=== PATIENT | male | born 1955 | race Caucasian/White ===

== ENCOUNTER 2024-04-17 10:20 | Outpatient (REF) | payer MEDICARE, SELFPAY ==
--- OUTSIDE RECORDS SUMMARY | 2024-04-17 11:06 | XMS_ITS | Data Portability ---
Author Organization [facility], Home Service Address [address] [place] [address] Assessment No assessment recorded. Plan of Treatment Reminders Order Date Submit Date Provider Last Modified By Organization Details Last Modified Time Details Appointments ANNUAL EXAM 2024 11:30A M DR CALVERT Not available Not available Not available Lab CBC 2018 019 [facility], [address] [place] [address], [id number], 01/02/2019 16:53:14 CMP, serum or plasma 2018 019 [facility], [address] [place] [address], [id number], 01/02/2019 16:53:14 erythrocy te sedimenta tion rate by racheal marx 2018 019 [facility], [address] [place] [address], [id number], 01/01/2019 16:10:43 lipid panel, blood 2018 019 [facility], [address] [place] [address], [id number], 01/10/2019 16:50:34 rapid strep group A, throat 2019 020 [facility], [address], [address], [place], [address], 04/15/2019 15:22:24 culture, bacterial 2019 020 [facility], [address] [place] [address], [id number], 04/15/2019 15:10:34 fungus, culture, unspecifi ed specimen 2019 [facility], [address] [place] [address], [id number], 05/20/2019 09:50:41 lipid panel, blood 2023 [facility], [address] [place] [address], [id number], 09/18/2023 11:53:52 CMP, serum or plasma 2023 [facility], [address] [place] [address], [address], 09/18/2023 11:53:52 Referral None recorded. Procedures None recorded. Surgeries None recorded. Imaging XR, chest 2018 [facility] Not available 01/02/2019 13:06:30 CT, chest, w/ contrast 2018 019 [facility] Not available 01/07/2019 14:09:49 Medication Orders Diflucan 100 mg tablet [address] [facility], [address] [place], [place], [id number], 09/18/2023 10:59:07 chlorhexi dine gluconate 0.12 % mouthwash [address] [facility], [address] [place], [place], [id number], 09/18/2023 11:03:33 rosuvasta tin 10 mg tablet [address] [facility], [address] [place], [place], [id number], 09/18/2023 11:39:44 Patient TargetsNo targets recorded. Patient Instructions Encounter Date Encounter Id Patient Instructions Last Modified By Organization Details Last Modified Time 08/26/2018 elevated blood pressure: care instructions Not available 08/26/2018 10:50:12 ganglions: care instructions Not available 08/26/2018 10:50:12 01/01/2019 [id number] coughing up bloo d: care instructions Not available 01/01/2019 16:01:47 04/15/2019 [id number] candidiasis: car e instructions Not available 04/15/2019 15:03:40 elevated blood pressure: care instructions Not available 04/15/2019 15:03:40 09/18/2023 [id number] lightheadedness or faintness: care instructions Not available 09/18/2023 11:52:25 Reason for Referral None Reported. Results Created Date Observation Date Name Description Value Unit Range Abnormal Flag Note LastModifiedBy Organization Detail LastModifiedTime 04/15/19 20 04/15/2019 rapid strep group A, throa t Strep negati ve Not Available [facility] [address], [place], [address], 04/15/2019 14:49:50 01/03/20 19 01/02/2019 XR, chest No observ ation record ed. [address], [address], 01/10/2019 16:16:21 01/08/20 19 01/07/2019 CT, chest , w/ contr ast No observ ation record ed. [address], [address], 01/10/2019 16:16:20 10/01/19 20 09/26/2019 trans -thor acic echoc ardio gram (TTE) (PROC ) No observ ation record ed. Danny Gorman MD [address] [facility] [address], [place], [address], 09/18/2023 11:28:08 05/27/19 22 05/24/2021 US, jessica rizo carot id arter y No observ ation record ed. [facility] [address] [place], [address], 09/18/2023 11:28:08 08/18/19 22 08/08/2021 imagi ng/di agnos tic resul t No observ ation record ed. [facility] [address] [place], [address], 09/18/2023 11:28:08 06/27/19 23 06/22/2022 nucle ar stres s test No observ ation record ed. [facility] [address] [place], [address], 09/18/2023 11:28:08 06/28/19 23 06/14/2022 milka r monit or No observ ation record ed. [facility] [address] [place], [address], 09/18/2023 11:28:08 07/08/19 23 07/05/2022 trans -thor acic echoc ardio gram (TTE) (PROC ) No observ ation record ed. [facility] [address], [place], [address], 09/18/2023 11:28:07 Result Notes None recorded. Problems Name Problem SNOMED Code Status Onset Date Resolution Date Notes Provider Name and Address Organization Details Recorded Time Hypertensi ve disorder 41938233 Active 2017 Not Available [facility] 16:44:17 Hyperchole sterolemia 55624227 Active 2017 Not Available [facility] 16:44:17 Left ventricula r hypertroph y 75254299 Active 2018 Not Available [facility] 3 16:44:17 Nodule of lung 275274014 Active 2018 Not Available [facility] 3 16:44:17 Cough 05200195 Active 2023 Michael Calvert, DO [address] [place], [address], [place] [facility] 4 14:51:03 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 Procedures Surgical History None recorded. Imaging Results Imaging Date Name Status LastModified by Organization Details LastModified Time 01/02/2019 XR, chest completed [address], [address], 01/10/2019 16:16:21 01/07/2019 CT, chest, w/ contrast completed [address], [address], 01/10/2019 16:16:20 09/26/2019 trans-thoracic echocardiogram (TTE) (PROC) [place] [address] Danny Gorman MD [address], [address], 09/18/2023 11:28:08 05/24/2021 US, duplex, carotid artery completed [address] [facility] [address] [place], [address], 09/18/2023 11:28:08 08/08/2021 imaging/diagnostic result completed [address] Cardiology [address] [place], [address], 09/18/2023 11:28:08 06/22/2022 nuclear stress test completed [address] [facility] [address] [place], [address], 09/18/2023 11:28:08 06/14/2022 holter monitor [facility] [address], [place], [address], 09/18/2023 11:28:08 07/05/2022 trans-thoracic echocardiogram (TTE) (PROC) [facility] [address], [place], [address], 09/18/2023 11:28:07 Procedure Notes None recorded. Medical Equipment None Reported. Allergies No known drug allergies Medications Name Sig Start Date Stop Date Status Note LastModified by Organization Details LastModified Time carvedilol 25 mg tablet TAKE 1 TABLET BY MOUTH TWICE DAILY WITH MEALS active Not Available Not Available No t Available doxycycline hyclate 100 mg capsule TAKE 1 CAPSULE BY MOUTH TWICE A DAY WITH FOOD FOR 2 TO 4 WEEKS. DO NOT TAKE RIGHT BEFORE BEDTIME 09/17 completed Not Available Not Available Not Available azithromyci n 250 mg tablet TAKE 2 TABLETS (500 MG) BY ORAL ROUTE ONCE DAILY FOR 1 DAY THEN 1 TABLET (250 MG) BY ORAL ROUTE ONCE DAILY FOR 4 DAYS 09/17 completed Not Available Not Available Not Available Diflucan 100 mg tablet Take 1 tablet every day by oral route for 7 days. 09/17 completed Not Available Not Available Not Available MetroCream 0.75 % topical APPLY A THIN LAYER TO THE AFFECTED AREA(S) BY TOPICAL ROUTE 2 TIMES PER DAY IN THE MORNING AND EVENING 01/01 completed Not Available Not Available Not Available simvastatin 20 mg tablet Take 1 tablet every day by oral route. 06/07 completed Not Available Not Available Not Available lisinopril 10 mg tablet TAKE 1 TABLET BY MOUTH DAILY active Not Available Not Available No t Available lisinopril 40 mg tablet Take 1 tablet every day by oral route. 09/17 completed Not Available Not Available Not Available rosuvastati n 5 mg tablet TAKE 1 TABLET BY MOUTH DAILY 09/17 completed Not Available Not Available Not Available rosuvastati n 10 mg tablet TAKE 1 TABLET BY MOUTH EVERY DAY active Not Available Not Available No t Available chlorhexidi ne gluconate 0.12 % mouthwash Place 45 mL every day by mucous membrane route for 30 days. 09/17 completed Not Available Not Available Not Available carvedilol 05/06 completed Not Available Not Available Not Available simvastatin 05/06 completed Not Available Not Available Not Available lisinopril 05/06 completed Not Available Not Available Not Available Vitals Date Recorded Body height Body mass index (BMI) Body weight Heart rate Oxygen saturation Oxygen saturation in Arterial blood by Pulse oximetry Systolic blood pressure Diastolic blood pressure Provider Name and Address Organization Details Last Updated DateTime 9 177.17 cm 33.3 kg/m2 358980. 32 g 75 /min 97 % 97 % 132 mm[Hg] 80 mm[Hg] Michael Calvert, DO [address] [place], [address] [place] [address] Internal Medicine 9 16:08:40 Date Recorded Body height Heart rate Oxygen saturation Oxygen saturation in Arterial blood by Pulse oximetry Body temperature Systolic blood pressure Diastolic blood pressure Provider Name and Address Organization Details Last Updated DateTime 0 177.17 cm 77 /min 98 % 98 % 98.5 [degF] 150 mm[Hg] 90 mm[Hg] Dianna Nj [facility] 0 14:50:45 Date Recorded Body height Body mass index (BMI) Body weight Heart rate Oxygen saturation Oxygen saturation in Arterial blood by Pulse oximetry Systolic blood pressure Diastolic blood pressure Provider Name and Address Organization Details Last Updated DateTime 4 177.17 cm 32.8 kg/m2 614118. 11 g 58 /min 98 % 98 % 112 mm[Hg] 72 mm[Hg] Phylicia Kolb [facility] 4 11:08:25 Date Recorded Body height Body mass index (BMI) Body weight Heart rate Oxygen saturation Oxygen saturation in Arterial blood by Pulse oximetry Systolic blood pressure Diastolic blood pressure Provider Name and Address Organization Details Last Updated DateTime 9 177.17 cm 34.5 kg/m2 663213. 86 g 62 /min 97 % 97 % 140 mm[Hg] 90 mm[Hg] Dianna Nj [facility] 9 10:23:07 Date Recorded Body height Body mass index (BMI) Body weight Heart rate Oxygen saturation Oxygen saturation in Arterial blood by Pulse oximetry Systolic blood pressure Diastolic blood pressure Provider Name and Address Organization Details Last Updated DateTime 9 177.17 cm 34.5 kg/m2 739537. 86 g 74 /min 98 % 98 % 138 mm[Hg] 80 mm[Hg] Cristy Kingsley [facility] 9 15:24:39 Social History Question Answer Notes LastModified by Organizat ion Details LastModified Time Tobacco Smoking Status Former Smoker Not Available [facility] 02/10/2020 03:36:24 What Was The Date Of Your Most Recent Tobacco Screening? 09/18/2023 [email or web address] Information not available 09/18/2023 Sex: Unknown Functional Status None recorded. Mental Status None recorded. Family History Nothing Reported. Medical History No medical history recorded. Past Encounters Encounter ID Performer Location Encounter Start Date Encounter Closed Date Diagnosis/Indication Diagnosis SNOMED-CT Code Diagnosis ICD10 Code Diagnosis Note [id number] July AMPARO Alva [facility] [address] [place] [address] 02/19/2018 13:58:09 02/19/2018 15:27:16 Hypertensive disorder 41759531 I10 has cpe scheduled for april, will recheck Hypercholesterolemia 136 81250 E78.00 Pneumonia 625513111 J18. 9 had atypical pna last year with resolution with zpack [id number] [facility] Internal Medicine [address] [place] [address] 05/06/2018 11:52:18 05/06/2018 12:26:23 Adult health examination 554977863 Z00.00 will try holding the simvastati n first, if no improvemen t will consider lisinopril but will discuss with cardiology also will obtain a fasting lab [id number] [facility] Internal Medicine [address] [place] [address] [place] [address] 06/07/2018 10:19:54 06/07/2018 11:20:05 Hypercholesterolemia 33655528 E78.00 will repeat and have this done in october to see how he did off statin Hypertensive disorder 38 472752 I10 cont lisinopril for now and rechk in october Prostate s pecific antigen above reference range 828042076 R97.20 discussed at length and will repeat in 4 mo Left ventr icular hypertrophy 74963993 I51.7 here the last echo is ok and the LV is actually better Dione Artie [facility] [address] [facility] [address] [address] 08/26/2018 10:12:31 08/26/2018 14:06:07 Ganglion cyst 81053997 M67.40 cyst aspirated advised of signs of infection and to call if develop advised that if cyst returns, hand surgeon consult recommende d for cyst removal PROCEDURE: cyst aspiration - cyst was sterilized with povidone and aspirated using an 18 guage needle about 0.5 cc of blood streaked clear fluid was removed consistent with synovial fluid. skin was cleansed and bandaged Hypertensive disorder 38 209045 I10 mildly elevated will monitor Hypercholesterolemia 136 60812 E78.[id number] [facility] Internal Medicine [address] [place] [address] [place] [address] 01/01/2019 15:13:47 01/01/2019 16:13:49 Hemoptysis 47195656 R04.2 new onset and unprovoked except after the exertion will need cxr and ct scan both ordered consider cbc etc [id number] [facility] Internal Medicine [address] [place] [address] [place] [address] 01/10/2019 16:03:43 01/10/2019 16:36:30 Hemoptysis 96551095 R04.2 resolved and without issue ct is normal and cxr is normal he does have a LLL pulm nodule Prostate s pecific antigen above reference range 710107798 R97.20 discussed at length and will see urol next week Hypercholesterolemia 136 45909 E78.00 simvastati n caused brain fog and depression [id number] Dione Alva [facility] [address] [place] [address] 04/15/2019 14:45:16 04/15/2019 15:19:20 Hypertensive disorder 48288415 I10 mildly elevated today Hypercholesterolemia 136 48139 E78.00 Pharyngitis 499698151 J0 2.9 ? fungal wheres mouthgard for teeth grinding, rinses, but no sterilizat ion techniques Candidiasis of mouth 797 01845 B37.0 [id number] Michael Calvert, [facility] Internal [facility] [address] [address] 09/18/2023 10:55:58 09/18/2023 12:00:36 Active or passive immunization 241983963 Z23 utd Adult heal th examination 531514617 Z00.00 has held the simvastati n and feels markedly betterwill now try rosuvastat Depression screening 171 006849 Z13.31 SCREENING NEGATIVE Near syncope 733882349 R 55 given that he has several episodes when bending over and straighten ing [place] can nearly pass out now that he has remained hydrated and taking vitamin C he feels better and hasnt had an episode in 3 months where he would have Health Concerns Section Related Observation LastModified by Organization Detai ls LastModified Time None Recorded Concern Status LastModified by Organization Details LastModified Time None Recorded Advance Directives Directive None Recorded Payers Encounter Date Sequence Insurance Name Policy Number Policy Sarkar Covered Member ID Sarkar Member ID Guarantor Name 08/26/2018 1 [place] [id number] Dwain Harrison [id number] Dwain Harrison 01/01/2019 1 [place] [id number] Dwain Harrison [id number] Dwain Harrison 01/10/2019 1 [place] [id number] Dwain Harrison [id number] Dee Harrison 04/15/2019 1 [place] [id number] Dwain Harrison [id number] Dwain Harrison 09/18/2023 1 [place] [id number] Dwain Harrison [id number] Dwain Harrison Notes Date Note Type Note Provider Name a nd Address Organization Details Recorded Time 9 text/html lump on right 3rd digit - pip jt. no pain several months. would like to see if it can be aspirated. otherwise no complaints 12 system ROS negative except where noted above- denies: chest pain, palpitations, sob, ankle swelling, visual problems, hearing problems, muscle aches or pains, numbness or tingling extremities, abdominal pain, bowel issues, bladder issues, sexual dysfunction, abnormal bleeding, sx of sinus/respiratory infection , headaches, dizziness/lightheaded ness, rashes, or nail changes. AMPARO Parks [address] [place], [address], [facility] 08/26/2018 10:52:34 9 text/html was doing a lot of hiking went up a steep area and was winded was noted to begin coughing and then started bleeding and began with hemoptysis for the next 2 hours went to bed that night and noted a sensation on his right lung whcih would seemingly generate the hemoptysis disappeared over the next day hasnt happened since used to smoke quit in 1985 pack [er day for 15 yrs Michael Calvert DO [address] [place] [address], [address], [facility] 01/01/2019 16:04:12 9 text/html states is here for hemoptysis relates is no longer having and is just having a scant amount has had tests no w just residual dry cough Michael Calvert DO [address] [place], [address], [facility] 01/10/2019 16:32:17 0 text/html sore throat for about 3-4 weeks, feels like its cracked. had tonsils out age 17 doesn't feel sick, hasn't felt sick either feels sore when stretching his neck looked in the back and noticed white lines and a red raw spot on the left side 12 system ROS negative except where noted above- denies: chest pain, palpitations, sob, ankle swelling, visual problems, hearing problems, muscle aches or pains, numbness or tingling extremities, abdominal pain, bowel issues, bladder issues, sexual dysfunction, abnormal bleeding, sx of sinus/respiratory infection , headaches, dizziness/lightheaded ness, rashes, or nail changes. AMPARO Parks [address] [place], [address], [facility] 04/15/2019 15:05:23 4 text/html Annual WellnessReported bypatient.Diet and Nutrition:healthy diet Fracture Risk:no history of fractures; no recent explained fracture; no sudden unexplained fractures; no previous musculoskeletal injuries Physical Activity:exercises on a regular basis; recent increase in physical activity; good physical condition Additional Lifestyle Factors:no tobacco use; no alcohol intake; stopped drinking alcohol Depression Risk:never feels sad, empty, or tearful; no loss of interest in activities; no significant changes in weight; no sleep disturbances or insomnia; no agitation; no loss of energy; no feelings of worthlessness or guilt; no thoughts of suicide; no history of depression; no history of mood disorders Hearing:no loss of hearing Vision:no vision problems here for cpe Michael Calvert DO [address] [place], [address], [facility] 09/18/2023 11:52:59
[2024-04-17 12:19] LABS: Cholesterol 208 mg/dL (<200); HDL Cholesterol 58 mg/dL (>40); LDL Cholesterol Calculated 129 mg/dL (<100); Triglycerides 108 mg/dL (<150)
[2024-04-17 12:46] LABS: Alanine Aminotransferase 43 U/L (0-40); Alkaline Phosphatase 70 U/L (39-117); Anion Gap 11 (12-20); Aspartate Amino Transferase 34 U/L (5-37); Bilirubin Total 0.6 mg/dL (0.0-1.0); Blood Urea Nitrogen 23 mg/dL (9-16); Calcium 9.3 mg/dL (8.4-10.2); Carbon Dioxide 22 mmol/L (22-29); Chloride 111 mmol/L (96-108); Estimated Glomerular Filt Rate > 60; Glucose Random 128 mg/dL (60-115); Potassium 4.2 mmol/L (3.3-5.1); Sodium 140 mmol/L (135-145); Total Protein 6.8 g/dL (6.5-8.0)
== END 2024-04-17 10:21 | disposition home or self-care (01) ==
LOC: HO.LAB 10:20
PROVIDERS: PCP Internal Medicine; Referring Provider Internal Medicine; Visit Provider Nurse Practitioner
DX: Z00.00 Encounter for general adult medical examination without abnormal findings (principal); E78.00 Pure hypercholesterolemia, unspecified
CPT/HCPCS: 36415; 80053; 80061

== ENCOUNTER 2024-10-28 09:44 | Outpatient (REF) | payer MEDICARE, SELFPAY ==
--- OUTSIDE RECORDS SUMMARY | 2024-10-28 10:30 | XMS_ITS | Continuity of Care Document ---
Author Organization [facility], [facility] Address [address] [place] [address] Assessment No assessment recorded. Plan of Treatment Reminders Order Date Submit Date Provider Last Modified By Organization Details Last Modified Time Details Appointments ANNUAL EXAM 2024 09:00A M DR CALVERT Not available Not available Not available ANNUAL EXAM 2025 09:00A M DR CALVERT Not available Not available Not available Lab PSA, total + free, serum or plasma 2024 025 [facility], [address] [place] [address], [id number], 10/28/2024 09:38:58 testoster one, total, serum 2024 025 [facility], [address] [place] [address], [id number], 10/28/2024 09:33:20 vitamin B12, serum 2024 025 [facility], [address] [place] [address], [id number], 10/28/2024 09:33:20 TSH, serum or plasma 2024 025 [facility], [address] [place] [address], [id number], 10/28/2024 09:33:20 CBC w/ auto diff 2024 025 [facility], [address] [place] [address], [id number], 10/28/2024 09:33:20 Referral None recorded. Procedures None recorded. Surgeries None recorded. Imaging None recorded. Medication Orders terbinafi ne HCl 250 mg tablet 2024 025 [id number], [address] [place], [place], [phone], 10/28/2024 09:31:59 Patient TargetsNo targets recorded. Patient Instructions Encounter Date Encounter Id Patient Instructions Last Modified By Organization Details Last Modified Time 10/28/2024 [id number] prostate biopsy: about this test Not available 10/28/2024 09:37:42 Reason for Referral None Reported. Problems Name Problem SNOMED Code Status Onset Date Resolution Date Notes Provider Name and Address Organization Details Recorded Time Hypertensi ve disorder 19723659 Active 2017 Not Available [facility] 3 16:44:17 Hyperchole sterolemia 89796710 Active 2017 Not Available [facility] 3 16:44:17 Left ventricula r hypertroph y 55498982 Active 2018 Not Available [facility] 3 16:44:17 Nodule of lung 967782884 Active 2018 Not Available [facility] 3 16:44:17 Cough 48685004 Active 2023 Michael Calvert DO [address] [place] [address], [phone], [facility] 4 14:51:03 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 Active 2023 Michael Calvert DO [address] [place] [address], [phone], [facility] 4 11:30:22 Near syncope 210830077 Active 2023 Michael Calvert DO [address] [place] [address], [phone], [facility] 4 11:47:49 Onychomyco sis of toenails 378384491 Active 2024 Michael Calvert DO [address] [place] [address] [place], [phone], [facility] 5 09:15:01 Fatigue 85267556 Active 2024 Michael Calvert, [address] [place], [address], [facility] 5 09:16:47 Prostate specific antigen above reference range 187014607 Active 2024 Michael Calvert, DO [address] [place], [address], [facility] 5 09:37:31 Problem Notes None recorded. Medical Equipment None Reported. Allergies No known drug allergies Medications Name Sig Start Date Stop Date Status Note LastModified by Organization Details LastModified Time carvedilol 25 mg tablet TAKE 1 TABLET BY MOUTH TWICE DAILY WITH MEALS active Not Available Not Available No t Available doxycycline hyclate 100 mg capsule TAKE 1 CAPSULE BY MOUTH TWICE DAILY WITH FOOD FOR 2 TO 4 WEEKS. DO NOT TAKE RIGHT BEFORE BEDTIME. 10/28 completed Not Available Not Available Not Available azithromyci n 250 mg tablet TAKE 2 TABLETS (500 MG) BY ORAL ROUTE ONCE DAILY FOR 1 DAY THEN 1 TABLET (250 MG) BY ORAL ROUTE ONCE DAILY FOR 4 DAYS 09/17 completed Not Available Not Available Not Available terbinafine HCl 250 mg tablet Take 1 tablet every day by oral route for 30 days. 2024 active Not Available Not Available Not Avai lable Diflucan 100 mg tablet Take 1 tablet every day by oral route for 7 days. 09/17 completed Not Available Not Available Not Available simvastatin 20 mg tablet Take 1 tablet every day by oral route. 06/07 completed Not Available Not Available Not Available lisinopril 10 mg tablet TAKE 1 TABLET BY MOUTH DAILY active Not Available Not Available No t Available metronidazo le 0.75 % topical cream APPLY TOPICALLY EVERY DAY - TWICE DAILY TO AFFECTED AREAS FOR ROSACEA active Not Available Not Available No t [...] Available Not Available Vitals Date Recorded Body weight Oxygen saturation Oxygen saturation in Arterial blood by Pulse oximetry Heart rate Systolic And Diastolic Provider Name and Address Organization Details Last Updated DateTime 5 566691. 53 g 96 % 96 % 68 /min 128/74 mm[Hg] Yoli Martinez [facility] 5 09:03:28 Social History Question Answer Notes LastModified by Organizat ion Details LastModified Time Tobacco Smoking Status Former Smoker Not Available [facility] 02/10/2020 03:36:24 What Was The Date Of Your Most Recent Tobacco Screening? 10/28/2024 [email or web address] Information not available 10/28/2024 Sex: Unknown Functional Status None recorded. Mental Status None recorded. Family History Nothing Reported. Medical History No medical history recorded. Past Encounters Encounter ID Performer Location Encounter Start Date Encounter Closed Date Diagnosis/Indication Diagnosis SNOMED-CT Code Diagnosis ICD10 Code Diagnosis Note [id number] Michael Calvert DO [facility] [address] [facility] [address] 10/28/2024 08:54:26 10/28/2024 10:02:55 Active or passive immunization 882966377 Z23 utd Depression screening 171 529808 Z13.31 SCREENING NEGATIVE Hypercholesterolemia 136 12443 E78.00 simvastati n caused brain fog and depression Hypertensive disorder 38 547667 I10 cont lisinopril for now and rechk in october Left ventr icular hypertrophy 35922538 I51.7 here the last echo is ok and the LV is actually betterseei ng cardiology in 2 days reviewed lab in detail Onychomyco sis of toenails 310600696 B35.1 will start terbinafin e Fatigue 96452083 F32.A R53.83 Well adult 775952983 Z00 .00 has held the simvastati n and feels markedly betterwill now try rosuvastat Prostate s pecific antigen above reference range 208606430 R97.20 discussed at length and will see urol next week Health Concerns Section Related Observation LastModified by Organization Detai ls LastModified Time None Recorded Concern Status LastModified by Organization Details LastModified Time None Recorded Payers Encounter Date Sequence Insurance Name Policy Number Policy Sarkar Covered Member ID Sarkar Member ID Guarantor Name 10/28/2024 1 [facility] [id number] 1 Dwain Harrison [id number] Dwain Harrison 10/28/2024 2 MEDICARE [employer]: [employer] Dwain Harrison [id number] Dwain Harrison Notes Date Note Type Note Provider Name and Address Organization Details Recorded Time 10/29/19 25 text/htm l Annual WellnessReported bypatient.Diet and Nutrition:healthy diet Fracture [...] disorders Hearing:no loss of hearing Vision:no vision problemsCare Management - HyperlipidemiaReported bypatient.Control:usually well controlled; improving; at goal Complications:no coronary artery disease; no heart attack; no cardiovascular disease; no pancreatitis; no strokeCare Management - HypertensionReported bypatient.Self Care:not under emotional stress Severity:symptoms are improving; does not interfere with daily activities Associated Symptoms:no dizziness; no lightheadedness; no chest pain; no shortness of breath; no palpitations; no edema; no calf muscle cramps; no blurred vision; no confusion; no headaches; no fatigue here for rechk and is doing ok overallno major issuesand no problems overall Michael Calvert, DO [address] [place], [address], [facility] 10/28/2024 09:38:43
--- OUTSIDE RECORDS SUMMARY | 2024-10-28 10:30 | XMS_ITS | Encounter Summary ---
Author Organization [facility] Address [address] [facility] [address] [place] [address] Phone Care Team Providers Care Director Of Sales Support Name Role Phone Michael Livingston Primary Care Provider [phone] Michael Livingston DO Unavailable Encounter Details Date Type Department Care Team (Late st Contact Info) Description 07/20/2023 Procedure Pass [facility] Admitting Dept Virtual Department [address] [place] [address] Social History Tobacco Use Types Packs/Day Years Used Date Smoking Tobacco: Former Cigarettes Alcohol Use Standard Drinks/Week Comments Not Currently 0 (1 standard drink = 0.6 oz pur e alcohol) Education Answer Date Recorded Are you interested in more education? Not on patrick e 08/13/2022 Are you concerned about learning? Not on file 08/13/2022 No 08/13/2022 No 08/13/2022 Digital Access Answer Date Recorded No 09/03/2022 No 09/03/2022 Reliable internet access at home? Not on file 09/03/2022 Device with a working camera? Not on file Intimate Partner Violence Answer Date R ecorded Are you denied basic needs s uch as food, clothing, or medical care? No 07/20/2023 In the past 12 months have y ou been in a relationship with a person who hurts, threatens, or tries to control you? No 07/20/2023 Are you denied basic needs s uch as food, clothing, or medical care? No 07/20/2023 In the past 12 months have y ou been in a relationship with a person who hurts, threatens, or tries to control you? No 07/20/2023 Sex and Gender Information Value Date Recorded Sex Assigned at Not on file Legal Sex Male 6:17 PM EST Gender Identity Not on file Sexual Orientation Not on file documented as of this encounter Plan of Treatment Not on file documented as of this encounter Visit Diagnoses Not on filedocumented in this encounter Care Teams Director Of Sales Support Relationship Specialty Start Date End Date Michael Livingston DO [email or web address] PCP - General Internal Medicine 01/02/19 Michael Livingston DO [address] [place] [address] [email or web address] Insurance Assigned Provider 12/15/23 06/14/24 documented as of this encounter Additional Source Comments The information contained in this document represents components of the legal health record. It is not the complete legal health record.[facility]
--- OUTSIDE RECORDS SUMMARY | 2024-10-28 10:30 | XMS_ITS | Clinical Summary ---
Author Organization [address] [place] [address] [place] [phone] Phone Care Team Providers Care Chief Security Officer Name Role Phone Michael Livingston DO Primary Care Provider [phone] Allergies No known active allergies Medications lisinopriL (PRINIVIL,ZESTRIL) 10 mg tablet Take 1 tablet (10 mg total) by mouth 1 (one) time each day. 4 Active medical supply, miscellaneous (MISCELLANEOUS MEDICAL SUPPLY MISC) Take 1 tablet by mouth 1 (one) time each day. Misc Natural Products (PROSTATE SUPPORT OR) Active ascorbic acid (VITAMIN C) 1,000 mg tablet Take 1 tablet (1,000 mg total) by mouth 1 (one) time each day. Active saw palmetto 450 mg capsule Take 1 capsule by mouth 1 (one) time each day. Active cholecalciferol (VITAMIN D-3) 5,000 Units tablet Take 2 tablets (10,000 Units total) by mouth 1 (one) time each day. Active coenzyme Q-10 100 mg capsule Take 2 tablets by mouth 1 (one) time each day. 2 Active multivit-min/iron/ folic acid/K (ADULTS MULTIVITAMIN ORAL) Take 1 tablet by mouth 1 (one) time each day. 2 Active metroNIDAZOLE (METROCREAM) 0.75 % cream Apply topically if needed. Active omega-3 acid ethyl esters (LOVAZA) 1 gram capsule Take 1 capsule (1 g total) by mouth 1 (one) time each day. Active doxycycline hyclate (VIBRA-TABS) 100 mg tablet Take 1 tablet (100 mg total) by mouth if needed. Active vitamin B complex vit C no.4 (SUPER B COMPLEX + C ORAL) Take 2 tablets by mouth 1 (one) time each day. Active rosuvastatin (CRESTOR) 10 mg tablet Take 1 tablet (10 mg total) by mouth 1 (one) time each day. Active carvediloL (COREG) 25 mg tablet TAKE 1 TABLET BY MOUTH TWICE DAILY WITH MEALS 180 tablet 1 Active Active Problems Problem Noted Date Diagnosed Date LBBB (left bundle branch block) 06/01/2022 Overview (05/12/2024): Last Assessment & Plan: Patient has a left bundle branch block on EKG which was previously noted. Cardiomyopathy (CMS/HCC V24, CMS/HCC V28) 2021 Overview (05/12/2024): Last Assessment & Plan: This is been stable. He has no signs or symptoms of volume overload or difficulty breathing. His cardiac amyloid testing was negative for amyloid. He will continue on his Coreg and lisinopril. Again we will be decreasing his lisinopril dose due to his dizziness and his low blood pressure. Assessment & Plan (05/13/2024 5:15 PM EST): He has nonischemic cardiomyopathy and left bundle branch block since 2017 at least and left ventricular systolic function has recovered partially. Repeat ischemia workup was unremarkable from PET scan perfusion stress test in 2022 and he had no ischemic symptoms. I will review his images if they are still available possible to decide whether we should do further anatomic assessment. He otherwise had no symptom and functional class appears 1. Will continue medical treatment for now. He has quite profound QRS widening from left bundle branch block. At this point, is unclear whether left bundle branch block is part of cardiomyopathy process or left bundle branch block is the primary reason for his cardiomyopathy. Cardiac MRI will be helpful for further delineation. Will have a discussion in the near future. HFrEF (heart failure with re duced ejection fraction) (CMS/HCC V24, CMS/HCC V28) 04/21/2021 Overview (05/12/2024): Last Assessment & Plan: Patient has history of HFrEF-EF 40 to 45% on most recent echocardiogram from 06/2022. He had a PYP completed which was negative for amyloidosis. He denies any clinical symptoms of heart failure and he appears euvolemic on physical examination. He complains of lightheadedness only when bending over and this does not happen every time. His blood pressures have been well-controlled and he is not orthostatic. We discussed his hydration status and he admits to not maintaining proper hydration throughout the day especially while he is working. He will attempt to continue to increase hydration. His last stress test was negative for ischemia. We discussed the importance of taking his medications as prescribed and I would like him to take the carvedilol twice a day. If he has any further issues with the carvedilol he will let me know and I will consider reducing the dose. If he has increased lightheadedness or dizziness I would consider an decreasing the lisinopril dose. He is euvolemic on exam and does not require diuretic. Patient advised to seek emergency medical attention by calling 911 if they were to develop severe dyspnea, chest pain that did not resolve with rest or nitroglycerin, or if they were to faint. I've asked the patient to call if they develop worsening symptoms of heart failure such as increased shortness of breath, new or worsening cough, increased swelling in the legs or ankles, or weight gain of more than 2 pounds in one day or 4 pounds in one week. Assessment & Plan (05/13/2024 10:51 AM EST): Orders: ECG 12 lead Neuropathy 04/21/2021 Overview (05/12/2024): Last Assessment & Plan: His B12 and thyroid levels were normal. He continues to have some neuropathy. He will follow-up with you about this. Hypercholesterolemia 04/19/2021 Overview (05/12/2024): Last Assessment & Plan: Patient's cholesterol levels are extremely elevated. His total cholesterol is 299 with an LDL of 205. He has had significant side effects from statins in the past most significantly memory loss. He was trialed on low-dose Crestor in the past but unfortunately this continues to cause him to have unpleasant side effects. His side effects resolved once he stopped taking the Crestor. However given his extreme elevation in LDL I believe that it is important that we get this under better control. Patient is willing to go on PSK 9 inhibitor and we started him on Repatha today. I instructed him on how to self administer Repatha and he started his first dose today. He will repeat this every 2 weeks and we will repeat a lipid panel in 3 months. Hypertensive disorder 04/19/2021 Overview (05/12/2024): Last Assessment & Plan: Patient's blood pressure is adequately controlled on present medical therapies. He is not orthostatic. BP today 134/82. He continues on lisinopril and carvedilol. Unfortunately he is taking carvedilol only once a day and he should be taking this twice a day given his cardiomyopathy. We discussed this and patient will trial taking the carvedilol twice a day and let me know if he has any change in symptoms. Medical History Medical History Date Comments Multiple nodules of lung DX:Mult iple nodules of lung Family History Medical History Relation Name Comments Heart attack Father Heart attack Paternal Grandmother Relation Name Status Comments Father Paternal Grandmother Social History Tobacco Use Types Packs/Day Years Used Date Smoking Tobacco: Former Cigarettes Q uit: 04/09/1984 Smokeless Tobacco: Never Alcohol Use Standard Drinks/Week Comments Yes 0 (1 standard drink = 0.6 oz pur e alcohol) Sex and Gender Information Value Date Recorded Sex Assigned at Not on file Legal Sex Male 2:10 PM EST Gender Identity Not on file Sexual Orientation Not on file Obstetrics History Last Filed Vital Signs Vital Sign Reading Time Taken Comments Blood Pressure 118/66 05/13/2024 8:28 AM EST Pulse 64 05/13/2024 8:28 AM EST Temperature - - Respiratory Rate - - Oxygen Saturation 97% 05/13/2024 8:28 AM EST Inhaled Oxygen Concentration - - Weight 109 kg (240 lb) 05/13/2024 8:28 AM EST Height 177.8 cm (5' 10 ) 05/13/2024 8:28 AM EST Body Mass Index 34.44 05/13/2024 8:28 AM EST Plan of Treatment Upcoming Encounters Date Type Department Care Team (Late st Contact Info) Description 10/30/2024 7:50 AM EDT Office Visit [facility] [address] [facility] [address] [place] [address] Martha Skinner MD [address] [facility] [address] [place] [address] Health Maintenance Due Date Last Done Comments Pneumococcal Vaccine: 50+ Ye ars (1 of 1 - PCV) 09/10/2003 Zoster Vaccines (1 of 2) 09/10/2003 RSV Immunization Adult Patie nts (1 - Risk 60-74 years 1-dose series) 2013 Abdominal Aortic Aneurysm (A AA) Screen 03/18/2022 Cholesterol Screening (Lipid Panel) 03/18/2022 Colorectal Cancer Screening: Colonoscopy 03/18/2022 Falls Risk Assessment 03/18/2022 Hepatitis C Screening 03/18/2022 Hypertension/CHF/CAD Annual BMP Blood Test 03/18/2022 01/02/2019 Medicare Annual Wellness Visit 03/18/2022 Social Influencers of Health Screening 03/18/2022 COVID-19 Vaccine (1 - 2023-2 5 season) 2023 Depression Screening 04/09/2024 Influenza Vaccine (#1) 2024 DTaP,Tdap,and Td Vaccines (2 - Td or Tdap) 09/13/2030 09/13/2020 HIB Vaccines Aged Out No longer eligi ble based on patient's age to complete this topic HPV Vaccines Aged Out No longer eligi ble based on patient's age to complete this topic Hepatitis A Vaccines Aged Out No long er eligible based on patient's age to complete this topic Hepatitis B Vaccines Aged Out No long er eligible based on patient's age to complete this topic IPV Vaccines Aged Out No longer eligi ble based on patient's age to complete this topic MMR Vaccines Aged Out No longer eligi ble based on patient's age to complete this topic Meningococcal ACWY Vaccine Aged Out N o longer eligible based on patient's age to complete this topic Meningococcal B Vaccine Aged Out No l onger eligible based on patient's age to complete this topic RSV Immunization Patients Un blair 20 months Aged Out No longer eligible b ased on patient's age to complete this topic Varicella Vaccines Aged Out No longer eligible based on patient's age to complete this topic Insurance [employer] Care Teams Chief Security Officer Relationship Specialty Start Date End Date Michael Livingston DO [address] [facility] [address] [place], [place] PCP - General 01/08/12
[2024-10-28 13:08] LABS: MANUAL DIFF FLAG NO
[2024-10-28 13:48] LABS: Hematocrit 41.5 % (42.0-52.0); Hemoglobin 14.5 g/dl (14.0-18.0); Imm Gran Abs Auto 0.01 X10*3/uL (0.00-0.03); Imm Gran Pct Auto 0.2 % (0.0-0.4); Lymphocytes Absolute Auto 1.7 X10*3/uL (1.2-4.9); Mean Corpuscular HGB Conc 34.9 g/dl (31.0-36.0); Mean Corpuscular Hemoglobin 32.1 pg (27.0-33.0); Mean Corpuscular Volume 91.8 fL (80.0-98.0); NRBC Abs Auto 0.000 X10*3/uL (0.0-0.012); NRBC Pct Auto 0.0 /100WBC (0.0-0.2); Platelet Count 153 X10*3/uL (160-400); Red Blood Count 4.52 X10*6/uL (4.60-5.80); White Blood Count 4.6 X10*3/uL (4.8-10.8)
[2024-10-28 14:39] LABS: Prostate Specific Antigen 9.74 ng/mL (<0.05-4.0)
[2024-10-28 14:41] LABS: Thyroid Stimulating Hormone 1.25 uIU/mL (0.32-4.0)
[2024-10-28 14:50] LABS: Vitamin B12 668 pg/mL (200-900)
[2024-11-02 13:43] LABS: Testosterone, Free 56.4 pg/mL (30.0-135.0)
== END 2024-10-28 09:45 | disposition home or self-care (01) ==
LOC: HO.MANLDS 09:44
PROVIDERS: Visit Provider Internal Medicine
DX: Z12.5 Encounter for screening for malignant neoplasm of prostate (principal); F32.A Depression, unspecified; R97.20 Elevated prostate specific antigen [PSA]
CPT/HCPCS: 36415; 82607; 84153; 84402; 84403; 84443; 85025